=== PATIENT | male | born 1990 | race Caucasian/White ===

== ENCOUNTER 2018-02-15 20:16 | Emergency (ER) | payer OTHER ==
[2018-02-15 20:21] VITALS: BP 136/84
--- NOTE | 2018-02-15 20:33 | EDPHY ---
H & P Stated Complaint: r coller bone pain not sure if fx Time Seen by Provider: 02/15/18 20:22 HPI/ROS: CHIEF COMPLAINT: Right shoulder and clavicle pain post jujitsu HISTORY OF PRESENT ILLNESS: 28-year-old male right-hand dominant presents via private vehicle after he was performing [employer], was involved in an move with another individual and felt a popping immediate pain sensation in his right lateral clavicle. He has reproducible pain with range of motion. No head injury. No neck pain. No peripheral paresthesia, weakness, numbness. No loss of consciousness. No facial complaints such as paresthesia or pain. REVIEW OF SYSTEMS: A ten point review of systems was performed and is negative with the exception of the items mentioned in the HPI PAST MEDICAL/SURGICAL HISTORY: no anticoagulant use, no relevant medical/ surgical history SOCIAL HISTORY: denies alcohol use at time of incident PHYSICAL EXAM 1) GENERAL: Well-developed, well-nourished, alert and oriented. Appears to be in no acute distress. Answering questions appropriately. 2) HEAD: Normocephalic, atraumatic 3) HEENT: Pupils equal, round, reactive to light bilaterally. 4) NECK: Posterior cervical spine is nontender, no stepoff, no effusion. Full range of motion which does not elicit any midline cervical spine pain, no posterior midline tenderness, no step-off. 5) LUNGS: Clear to auscultation bilaterally, no wheezes, no rhonchi, no retractions. No obvious signs of trauma. No chest wall pain. No flaring, no grunting. Moving symmetrically. No crepitus. 6) HEART: [Regular rate and rhythm, 7) ABDOMEN: No guarding, no rebound, no focal tenderness, no peritoneal signs, no signs of trauma, no ecchymosis 8) MUSCULOSKELETAL: Right upper extremity: Reproducible pain to the lateral clavicle with range of motion. Tender to palpation at same location. No visible or palpable deformity. No step-off. Bilateral deltoid sensation equal. Bilateral upper extremity have equal pulses and color symmetrical 9) BACK: No midline vertebral tenderness, no fluctuance, no step-off, no obvious trauma, no visual or palpable abnormality. 10) SKIN: No laceration. No abrasion DIFFERENTIAL DIAGNOSIS: In no particular order including but not limited to fracture, sprain, strain, dislocation - Personal History Current Tetanus/Diphtheria Vaccine: Yes Current Tetanus Diphtheria and Acellular Pertussis (TDAP): Yes - Medical/Surgical History Hx Asthma: No Hx Chronic Respiratory Disease: No Hx Diabetes: No Hx Cardiac Disease: No Hx Renal Disease: No Hx Cirrhosis: No Hx Alcoholism: No Hx HIV/AIDS: No Hx Splenectomy or Spleen Trauma: No Other PMH: knee surgery - Social History Smoking Status: Never smoked Constitutional: Initial Vital Signs Temperature (C) 37.0 C 02/15/18 20:18 Heart Rate 81 02/15/18 20:18 Respiratory Rate 16 02/15/18 20:18 Blood Pressure 136/84 H 02/15/18 20:18 O2 Sat (%) 99 02/15/18 20:18 O2 Delivery Mode Room Air Allergies/Adverse Reactions: No Known Allergies Allergy (Unverified 02/15/18 20:20) Home Medications: Medication Instructions Recorded NK [No Known Home Meds] 02/15/18 Medical Decision Making - Diagnostics Imaging Results: Imaging Impressions Clavicle X-Ray 02/15/18 20:29 Impression: No evidence of right clavicle fracture or dislocation. Shoulder X-Ray 02/15/18 20:29 Impression: No fracture or dislocation of the right shoulder. Images reviewed myself Procedures: Procedure: Splint A sling splint was applied by ER inspector technician. After application of the splint I returned and re-examined the patient. The splint was adequately immobilizing the joint and distal to the splint the patient's circulation and sensation were intact. Patient shows no signs of compartment syndrome. Was given orthopedic precautions. ED Course/Re-evaluation: I explained limitations of x-rays the patient. He has been informed that soft tissue injury is not ruled out. I recommended a sling, follow up with Orthopedics, given this follow-up information. I saw this patient independently based on established practice protocols. Care of patient under supervision of secondary supervising physician Dr German Departure - Departure Disposition: Home, Routine, Self-Care Clinical Impression: Right shoulder pain Condition: Good Instructions: Shoulder Sprain (ED) Additional Instructions: Return to the ER immediately if you experience discoloration, have worsening pain, numbness, tingling, or any other symptoms that concern you. If you received x-rays in the emergency department today, be advised, that ligamentous , tendon, muscular, and other non-bony injury cannot be fully ruled out. Try to keep your affected extremity elevated above the level of your chest, and keep cold packs on the affected area, for the next 48 hours. Adult Pain & Fever Control: We recommend Acetaminophen (Tylenol) and Ibuprofen (Motrin,Advil) for pain and fever control. When fever is high or pain severe, both drugs can be used at the same time, but at different intervals. Please note the time differences. Your dose is: Acetaminophen 650mg every 4 to 6 hours Ibuprofen 600mg every 6 hours with food OR Note: do not take Acetaminophen with Hydrocodone (Vicodin, Lortab) or Oycodone (Percocet). These medications also contain Acetaminophen. No more than 3000mg of Acetaminophen should be taken in 24 hours (for an adult). Referrals: Valentín Baumann MD [Medical Doctor] - As per Instructions
== END 2018-02-15 21:16 | disposition home or self-care (01) ==
DX: S49.91XA Unspecified injury of right shoulder and upper arm, initial encounter (principal); X58.XXXA Exposure to other specified factors, initial encounter; Y99.8 Other external cause status; Y93.89 Activity, other specified
CPT/HCPCS: A4565